=== PATIENT | female | born 1970 | race Caucasian/White ===

== ENCOUNTER 2024-03-04 19:19 | Inpatient (IN) | payer BC ==
[~2024-03-04] VITALS: Ht 160 cm; Wt 65.8 kg
[2024-03-04] MEDS ORDERED: ALPR1TAB7 PO (19:35)
[2024-03-04] MEDS ORDERED: CLON0.1T PO (19:35)
[2024-03-04] MEDS ORDERED: LISI10TA29 PO (19:35)
[2024-03-04] MEDS ORDERED: LEVO125T PO (19:35)
[2024-03-04] MEDS ORDERED: LORAZEPAM 0.5 MG TABLET PO ONE (19:45)
[2024-03-04 20:08] LABS: BASOPHILS % (AUTO) 0.4 % (0.0-2.0); DIFFERENTIAL COMMENT 1; EOSINOPHILS % (AUTO) 0.1 % (0.0-7.0); HEMATOCRIT 39.4 % (31.2-41.9); LYMPHOCYTES # (AUTO) 1.7 K/uL (0.8-4.8); LYMPHOCYTES % (AUTO) 24.4 % (20.5-51.5); MEAN CORPUSCULAR HEMOGLOBIN 30.8 uug (24.7-32.8); MEAN CORPUSCULAR HGB CONC 33 g/dL (32.3-35.6); MONOCYTES # (AUTO) 0.6 K/uL (0.1-1.30); MONOCYTES % (AUTO) 8.6 % (0.0-11.0); NEUTROPHILS # (AUTO) 4.8 K/uL (1.8-8.9); NEUTROPHILS % (AUTO) 66.5 % (38.5-71.5); PLATELET COUNT (AUTO) 292 K/uL (179-408); RED BLOOD CELL COUNT(AUTO) 4.23 MIL/uL (3.63-4.92); RED CELL DISTRIBUTION WIDTH 13.2 % (12.3-17.7); WHITE BLOOD COUNT (AUTO) 7.1 K/uL (3.8-11.8)
[2024-03-04 20:08] LABS: *BILIRUBIN,URIN NEGATIVE (NEGATIVE); *CLARITY,URINE CLEAR (CLEAR); *KETONES,URINE NEGATIVE (NEGATIVE); *PROTEIN,URINE NEGATIVE (NEGATIVE); *UROBILINOGEN,URINE 0.2 E.U./dl (NORMAL); LEUKOCYTE ESTERASE ,URINE 3+ (NEGATIVE); NITRITE, URINE NEGATIVE (NEGATIVE); UGLUCOSE NEGATIVE (NEGATIVE)
[2024-03-04 20:09] LABS: *BLOOD, URINE TRACE (NEGATIVE); *COLOR,URINE LIGHT YELLOW (YELLOW)
[2024-03-04] MEDS: IV NS 1000 ML 1,000 ML IV ONE (20:09)
[2024-03-04] MEDS: ALPRAZOLAM 0.25 MG TABLET PO ONE (20:09)
[2024-03-04] MEDS ORDERED: ALPRAZOLAM 0.25 MG TABLET ONE (20:14)
[2024-03-04 20:16] LABS: CALCIUM 9.1 mg/dL (8.5-10.1); CARBON DIOXIDE 26 mmol/L (21-32); CHLORIDE 98 mmol/L (98-107); CREATININE 0.8 mg/dL (0.6-1.3); GLUCOSE 114 mg/dL (74-106); SODIUM SERUM 135 mmol/L (136-145); UREA NITROGEN, BLOOD 9 mg/dL (7-18)
[2024-03-04 20:17] LABS: *AMPHETAMINE, URINE NEGATIVE (NEGATIVE); *BARBITURATE, URINE NEGATIVE (NEGATIVE); *BENZODIAZEPINE, URINE NEGATIVE (NEGATIVE); *CANNABINOID, URINE NEGATIVE (NEGATIVE); *COCCAINE, URINE NEGATIVE (NEGATIVE); *OPIATE, URINE POSITIVE (NEGATIVE); *PHENCYCLIDINE SCREEN,URINE NEGATIVE (NEGATIVE); FENTANYL, URINE NEGATIVE (NEGATIVE)
[2024-03-04 20:24] LABS: ETHANOL < 3 MG/DL (0-10)
[2024-03-04 20:30] LABS: BACTERIA,URINE MODERATE /HPF (NONE SEEN); RBC,URINE 0-3 /HPF (0-3); SQUAMOUS EPITHELIAL CELL,UR MODERATE /HPF (NONE SEEN)
[2024-03-04 20:47] LABS: ALANINE AMINOTRANSFERASE 20 U/L (14-59); ALBUMIN 4.1 g/dL (3.4-5.0); ALKALINE PHOSPHATASE 119 U/L (50-136); ASPARTATE AMINOTRANSFERASE 8 U/L (15-37); BILIRUBIN,DIRECT 0.1 mg/dL (0.0-0.2); BILIRUBIN,TOTAL 0.4 mg/dL (0.2-1.0)
[2024-03-04 20:48] LABS: ACETAMINOPHEN < 10.0 ug/mL (10-30)
[2024-03-04 20:53] LABS: THYROID STIMULATING HORMONE 4.394 mIU/mL (0.358-3.740)
[2024-03-04 20:59] LABS: TOTAL PROTEIN, SERUM 7.5 g/dL (6.4-8.2)
[2024-03-04] MEDS ORDERED: CEFTRIAXONE /D5W 50ML IVPB **ER PYXIS IV ONE (21:29)
[2024-03-04] MEDS: HALOPERIDOL LACTATE 5 MG/1 ML VIAL IM ONE (21:37)
[2024-03-04] MEDS: CEFTRIAXONE 1 G in IV DEXTROSE 5% 50 ML IV ONE (21:37)
[2024-03-04] MEDS ORDERED: HYDROCODONE/APAP 5-325MG TABLET ONE (23:12)
[2024-03-04] MEDS: HYDROCODONE/APAP 5-325MG TABLET PO ONE (23:15)
[2024-03-05] MEDS ORDERED: HYDROCODONE/APAP 5-325MG TABLET ONE (00:05)
[2024-03-05] MEDS: HYDROCODONE/APAP 5-325MG TABLET PO ONE (00:06)
[2024-03-05] MEDS ORDERED: ACETAMINOPHEN 325 MG TABLET PO PRN (00:15)
[2024-03-05] MEDS ORDERED: MAGNESIUM HYDROXIDE 30 ML LIQUID UDC PO PRN (00:15)
[2024-03-05] MEDS ORDERED: CLONIDINE HCL 0.1 MG TABLET PO PRN (00:30)
[2024-03-05 01:00] VITALS: BP 100/74; TEMP 97.8; O2SAT 100
[2024-03-05] MEDS: IV NS 1000 ML 1,000 ML IV SCH (02:03)
[2024-03-05] MEDS: ALPRAZOLAM 0.5 MG TABLET PO PRN (02:04)
[2024-03-05] MEDS: MAG HYDROX/AL HYDROX/SIMETH 30 ML LIQUID UDC PO PRN (04:31)
[2024-03-05] MEDS: ONDANSETRON 4 MG/2 ML VIAL IV PRN (05:16)
[2024-03-05 06:00] VITALS: BP 116/62; TEMP 98; O2SAT 97
[2024-03-05] MEDS: HYDROCODONE/APAP 5-325MG TABLET PO PRN (06:54)
[2024-03-05] MEDS: LEVOTHYROXINE SODIUM 125 MCG TABLET PO SCH (06:54)
[2024-03-05] MEDS: LISINOPRIL 10 MG TABLET PO SCH (08:19)
[2024-03-05] MEDS ORDERED: HYDR-3980 PO (10:10)
[2024-03-05] MEDS ORDERED: SUCR1TAB31 PO (10:12)
[2024-03-05] MEDS: SUCRALFATE 1 G TABLET PO SCH (11:13)
[2024-03-05] MEDS: HYDROCODONE/APAP 10-325 MG TABLET PO PRN (14:24)
[2024-03-05 15:28] VITALS: BP 131/75; TEMP 97.6; O2SAT 100
[2024-03-05] MEDS: CEFTRIAXONE 1 G in IV DEXTROSE 5% 50 ML IV SCH (20:53)
[2024-03-05 21:17] VITALS: BP 121/74; TEMP 98.5; O2SAT 98
[2024-03-06] MEDS: BISACODYL 10 MG SUPP.RECT RC ONE ×2 (03:58→04:32)
[2024-03-06 04:00] VITALS: BP 123/71; TEMP 98.2; O2SAT 98
[2024-03-06] MEDS: MORPHINE SULFATE 2 MG/1 ML DISP.SYRIN IV ONE (04:02)
[2024-03-06 05:09] LABS: HEPATITIS B CORE AB, IgM Negative (Negative); HEPATITIS B CORE AB, TOTAL Negative (Negative); HEPATITIS B SURFACE AB, QUAL Reactive (.); HEPATITIS B SURFACE AG Negative (Negative); HEPATITIS Be ANTIGEN Negative (Negative); HEPATITIS C VIRUS ANTIBODY Non Reactive (Non Reactive)
[2024-03-06 07:51] LABS: BASOPHILS % (AUTO) 0.9 % (0.0-2.0); EOSINOPHILS # (AUTO) 0.1 K/uL (0.0-0.7); HEMATOCRIT 36.3 % (31.2-41.9); HEMOGLOBIN 12.1 g/dL (10.9-14.3); LYMPHOCYTES # (AUTO) 1.6 K/uL (0.8-4.8); LYMPHOCYTES % (AUTO) 29.9 % (20.5-51.5); MEAN CORPUSCULAR HEMOGLOBIN 31.3 uug (24.7-32.8); MEAN CORPUSCULAR HGB CONC 33 g/dL (32.3-35.6); MEAN CORPUSCULAR VOLUME 93.6 fL (75.5-95.3); MONOCYTES # (AUTO) 0.5 K/uL (0.1-1.30); MONOCYTES % (AUTO) 9.9 % (0.0-11.0); NEUTROPHILS # (AUTO) 3.2 K/uL (1.8-8.9); NEUTROPHILS % (AUTO) 58.3 % (38.5-71.5); PLATELET COUNT (AUTO) 236 K/uL (179-408); RED BLOOD CELL COUNT(AUTO) 3.88 MIL/uL (3.63-4.92); RED CELL DISTRIBUTION WIDTH 13.4 % (12.3-17.7); WHITE BLOOD COUNT (AUTO) 5.4 K/uL (3.8-11.8)
[2024-03-06 08:05] LABS: DIFFERENTIAL COMMENT 1
[2024-03-06 08:11] LABS: MAGNESIUM 2.5 mg/dL (1.8-2.4); PHOSPHOROUS 2.9 mg/dL (2.5-4.9)
[2024-03-06 08:22] LABS: CALCIUM 8.4 mg/dL (8.5-10.1); CREATININE 0.6 mg/dL (0.6-1.3); POTASSIUM 3.6 mmol/L (3.5-5.1)
[2024-03-06] MEDS: VENLAFAXINE XR 37.5 MG CAP.SR.24H PO SCH (09:29)
[2024-03-06 12:00] VITALS: BP 133/82; TEMP 98.7; O2SAT 100
[2024-03-06 16:23] VITALS: BP 134/83; TEMP 98.3; O2SAT 98
[2024-03-06] MEDS: MUPIROCIN 2% OINT 22 GM TUBE NS SCH (20:35)
[2024-03-07 07:13] LABS: BASOPHILS % (AUTO) 0.6 % (0.0-2.0); EOSINOPHILS % (AUTO) 0.6 % (0.0-7.0); HEMATOCRIT 38.7 % (31.2-41.9); LYMPHOCYTES % (AUTO) 28.1 % (20.5-51.5); MEAN CORPUSCULAR HEMOGLOBIN 31.3 uug (24.7-32.8); MEAN CORPUSCULAR HGB CONC 34 g/dL (32.3-35.6); MEAN CORPUSCULAR VOLUME 93.4 fL (75.5-95.3); MONOCYTES # (AUTO) 0.6 K/uL (0.1-1.30); MONOCYTES % (AUTO) 8.9 % (0.0-11.0); NEUTROPHILS # (AUTO) 4.3 K/uL (1.8-8.9); NEUTROPHILS % (AUTO) 61.8 % (38.5-71.5); PLATELET COUNT (AUTO) 293 K/uL (179-408); RED BLOOD CELL COUNT(AUTO) 4.15 MIL/uL (3.63-4.92); RED CELL DISTRIBUTION WIDTH 13.3 % (12.3-17.7)
[2024-03-07 07:18] LABS: DIFFERENTIAL COMMENT 1
[2024-03-07 07:21] LABS: CALCIUM 8.8 mg/dL (8.5-10.1); CREATININE 0.7 mg/dL (0.6-1.3); POTASSIUM 3.3 mmol/L (3.5-5.1)
[2024-03-07] MEDS: POTASSIUM CHLORIDE 20 MEQ TAB.PRT.SR PO ONE (08:45)
[2024-03-07] MEDS ORDERED: PANT40TA49 PO (08:53)
[2024-03-07] MEDS ORDERED: AMOX-430 PO (08:53)
[2024-03-07] MEDS ORDERED: VENL37.55 PO (08:53)
[2024-03-07 11:38] VITALS: BP 155/92; TEMP 98.1; O2SAT 98
[2024-03-07 22:06] LABS: *HCV QUANT HCV Not Detected IU/mL (.)
[2024-03-08] MEDS ORDERED: PANTOPRAZOLE SODIUM 40 MG TABLET.DR PO SCH (07:00)
== END 2024-03-07 13:10 | disposition home or self-care (01) | DRG 689 ==
LOC: ER 19:22 → MEDSURG3 03-05 00:05
PROVIDERS: ATTEND Internal Medicine
DX: N39.0 Urinary tract infection, site not specified (principal); G93.41 Metabolic encephalopathy; F33.2 Major depressive disorder, recurrent severe without psychotic features; K29.70 Gastritis, unspecified, without bleeding; E03.9 Hypothyroidism, unspecified; I70.0 Atherosclerosis of aorta; N20.0 Calculus of kidney; G89.29 Other chronic pain; I45.10 Unspecified right bundle-branch block; M15.9 Polyosteoarthritis, unspecified; R89.4 Abnormal immunological findings in specimens from other organs, systems and tissues; F41.9 Anxiety disorder, unspecified; F99 Mental disorder, not otherwise specified; I10 Essential (primary) hypertension; Z87.11 Personal history of peptic ulcer disease; Z98.84 Bariatric surgery status; Z90.49 Acquired absence of other specified parts of digestive tract; Z88.6 Allergy status to analgesic agent; Z79.899 Other long term (current) drug therapy; Z87.891 Personal history of nicotine dependence; Z22.322 Carrier or suspected carrier of Methicillin resistant Staphylococcus aureus; Z79.890 Hormone replacement therapy
CPT/HCPCS: 36415; 70450; 71045; 83735; 84100; 84443; 84484; 85025; 86704; 86705; 86706; 86803; 87340; 87350; 87521; 93005; A4663; G0378; G0480; J0696; J1630; J2270; J2405; J7040